=== PATIENT | female | born 1995 | race Caucasian/White ===

== ENCOUNTER 2022-02-18 08:55 | Outpatient (CLI) | payer BC ==
[2022-02-18 19:01] LABS: SARS-CoV-2 PCR by NAA Not Detected (NotDetected)
== END 2022-02-18 08:56 | disposition home or self-care (01) ==
LOC: CSHLAB 08:55
PROVIDERS: ATTEND Obstetrics & Gynecology
DX: Z20.822 Contact with and (suspected) exposure to COVID-19 (principal)
CPT/HCPCS: U0003; U0005

== ENCOUNTER 2022-02-23 18:00 | Inpatient (IN) | payer BC ==
[~2022-02-23 18:00] MED LIST: Bupivacaine 0.25% HCL 30 ML VIAL ONE; Bupivacaine HCl 0.5%/Epinephrine 1:200,000/PF 30 ml Vial ONE; ePHEDrine Sulfate 50 MG/10 ML VIAL ONE
[2022-02-23] MEDS ORDERED: HYDROcodone/Acetaminophen 5/325 mg Tablet PO PRN ×2 (21:40)
[2022-02-23] MEDS ORDERED: Misoprostol 200 MCG TAB PR PRN (21:40)
[2022-02-23] MEDS ORDERED: Ondansetron PF 4 MG/2 ML Vial IVP PRN (21:40)
[2022-02-23] MEDS ORDERED: Diphenoxylate HCl/Atropine Tablet PO PRN ×2 (21:40)
[2022-02-23] MEDS ORDERED: Promethazine HCl 25 MG/ML VIAL IM PRN (21:40)
[2022-02-23] MEDS ORDERED: Lorazepam 2 MG/ML VIAL SLOW IVP PRN (21:40)
[2022-02-23] MEDS ORDERED: Docusate 100 MG CAP PO PRN (21:40)
[2022-02-23] MEDS ORDERED: Zolpidem Tartrate 5 MG TAB PO PRN (21:40)
[2022-02-23] MEDS ORDERED: Acetaminophen 500 MG TAB PO PRN (21:40)
[2022-02-23] MEDS ORDERED: Calcium Gluc 4.6 MEQ/10 ML (100 MG/ML) SLOW IVP PRN (21:40)
[2022-02-23] MEDS ORDERED: NS w/ Oxytocin 30 units 500 ML IV SCH (21:40)
[2022-02-23] MEDS ORDERED: Butorphanol Tartrate 1 MG/ML VIAL SLOW IVP PRN (21:40)
[2022-02-23] MEDS ORDERED: hydrALAZINE 20 MG/ML VIAL SLOW IVP PRN (21:40)
[2022-02-23] MEDS ORDERED: Lidocaine 1% (PF) 30 ML VIAL SC PRN (21:40)
[2022-02-23] MEDS ORDERED: Ibuprofen 800 MG TAB PO PRN (21:40)
[2022-02-23] MEDS ORDERED: Penicillin G Potassium 5 MILL.UNITS in Sodium Chloride 0.9% 100 ML IVPB SCH (21:45)
[2022-02-23] MEDS ORDERED: Misoprostol 100 MCG TAB ONE (21:46)
[2022-02-23 22:11] VITALS: BMI 41.7
[2022-02-23] MEDS: Misoprostol 100 MCG TAB VAG SCH (22:45)
[2022-02-23] MEDS: Lactated Ringer's 1,000 ML IV SCH (22:45)
[2022-02-23 22:58] LABS: ALT (SGPT) 10 U/L (8-55); AST (SGOT) 14 U/L (5-34); Albumin 3.5 g/dL (3.5-5.0); Alkaline Phosphatase 158 U/L (40-110); Bilirubin, Direct 0.1 mg/dL (0.1-0.3); Bilirubin, Total 0.3 mg/dL (0.2-1.2); Protein, Total 6.3 g/dL (6.0-8.3); Uric Acid 4.5 mg/dL (2.6-6.0)
[2022-02-23 23:09] LABS: #Eosinphils 0.1 10x3/uL (0.0-0.5); #Monocytes 0.8 10x3/uL (0.0-1.1); #Neutrophils 7.7 10x3/uL (1.5-8.4); %Basophils 0.3 % (0.0-2.0); %Eosinophils 0.7 % (0.0-6.0); %Lymphocytes 18.8 % (18.0-47.0); %Monocytes 7.2 % (0.0-10.0); %Neutrophils 72.2 % (40.0-75.0); Hemoglobin 11.8 g/dL (12.0-15.5); Mean Corpuscular Hemoglobin 29.1 pg (27.0-33.0); Mean Corpuscular Volume 85.5 fl (81.6-98.3); Mean Platelet Volume 11.1 fl (7.4-10.4); Platelet Count 218 10x3/uL (150-450); Red Blood Cell (RBC) Count 4.06 10x6/uL (3.90-5.03); White Blood Cell (WBC) Count 10.6 10x3/uL (3.5-10.5)
[2022-02-23 23:14] LABS: HIV (1/2) Antibody/Antigen Non-Reactive (NonReactive); HIV 1/2 INDEX 0.07 S/CO (<1.00); Hep B Surf Ag Non-Reactive S/CO (NonReactive)
[2022-02-23 23:14] LABS: Syphilis Antibody Nonreactive (Nonreactive); Syphilis Antibody Index 0.06 S/CO (<1.00 Non-Reactive)
[2022-02-23 23:16] LABS: HBSAg Index 0.18 S/CO (0-0.99)
[2022-02-24 00:55] LABS: Creatinine, Urine 126.43 mg/dL (47-110)
[2022-02-24] MEDS: Penicillin G 2.5 MILL.units 2.5 MILL.UNITS in Premix Bag 1 BAG IVPB SCH ×4 (02:54→16:25)
[2022-02-24] MEDS: NS w/ Oxytocin 30 units 500 ML IV SCH ×2 (02:55→22:43)
[2022-02-24] MEDS: Lactated Ringer's 1,000 ML IV SCH (05:38)
[2022-02-24] MEDS ORDERED: Fentanyl 2 mcg/Bup 0.1% Cadd 100 ML ONE ×2 (08:42→16:12)
[2022-02-24] MEDS ORDERED: Acetaminophen 325 MG TAB PO PRN (09:44)
[2022-02-24] MEDS ORDERED: Naloxone HCl 0.4 mg/ml Vial IVP PRN ×2 (09:44)
[2022-02-24] MEDS ORDERED: ePHEDrine Sulfate 50 MG/10 ML VIAL SLOW IVP PRN (09:44)
[2022-02-24] MEDS ORDERED: Moisturizing Cream (Eucerin) 113 GM JAR TOP PRN (09:44)
[2022-02-24] MEDS ORDERED: Promethazine HCl 25 MG/ML VIAL IM PRN ×2 (09:44→21:48)
[2022-02-24] MEDS ORDERED: Ondansetron PF 4 MG/2 ML Vial IVP PRN ×2 (09:44→21:48)
[2022-02-24] MEDS ORDERED: Lactated Ringer's 500 ML IV PRN (09:44)
[2022-02-24] MEDS ORDERED: diphenhydrAMINE 50 MG/ML VIAL IVP PRN ×2 (09:44→21:48)
[2022-02-24] MEDS ORDERED: Communication Order-Pharmacy FS SCH ×2 (09:45→22:00)
[2022-02-24] MEDS ORDERED: Fentanyl 2 mcg/Bupivacaine 0.1% Cassette 100 ML EPIDURAL SCH (09:45)
[2022-02-24] MEDS ORDERED: Ondansetron PF 4 MG/2 ML Vial ONE ×2 (16:12→22:20)
[2022-02-24] MEDS ORDERED: ceFAZolin 2 GM/Dextrose 50 ML IVPB ONE (19:41)
[2022-02-24] MEDS ORDERED: Bicitra 30 ML UDCUP ONE (19:42)
[2022-02-24] MEDS ORDERED: Azithromycin 500 MG VIAL ONE (19:42)
[2022-02-24] MEDS ORDERED: PROPOFOL 20 ML ONE (19:47)
[2022-02-24] MEDS ORDERED: Fentanyl 100 MCG/2 ML VIAL ONE ×2 (19:47→20:57)
[2022-02-24] MEDS ORDERED: Oxytocin 10 UNITS/ML VIAL ONE (19:48)
[2022-02-24] MEDS ORDERED: Succinylcholine 200 MG/10 ml SYRINGE FS ONE (19:48)
[2022-02-24] MEDS ORDERED: PHENYLEPHRINE-NS 100 MCG/ML 10 ML SYRINGE ONE (19:48)
[2022-02-24] MEDS ORDERED: Rocuronium Bromide 10 MG/ML (10ML VIAL) ONE (19:48)
[2022-02-24] MEDS ORDERED: Carboprost 250 MCG/ML AMP ONE (20:00)
[2022-02-24] MEDS ORDERED: Glycopyrrolate 0.2 MG/ML 5 ML SYRINGE ONE (20:46)
[2022-02-24 20:59] LABS: pH (Cord, venous) 7.299 (7.250-7.350)
[2022-02-24] MEDS ORDERED: Ondansetron HCl/PF 4 MG/2 ML Vial IVP PRN (21:48)
[2022-02-24] MEDS ORDERED: Zolpidem Tartrate 5 MG TAB PO PRN (21:48)
[2022-02-24] MEDS ORDERED: diphenhydrAMINE 25 MG CAP PO PRN (21:48)
[2022-02-24] MEDS ORDERED: diphenhydrAMINE 50 MG/ML VIAL IM PRN (21:48)
[2022-02-24] MEDS ORDERED: Naloxone HCl 0.4 mg/ml Vial IV PRN (21:48)
[2022-02-24] MEDS: fentaNYL Citrate/PF 1,000 MCG in Sodium Chloride 0.9% 30 ML IV PRN (22:14)
[2022-02-24] MEDS ORDERED: Dexamethasone 4 mg/ml Vial ONE (22:20)
[2022-02-24] MEDS: Ketorolac Tromethamine 30 MG/ML VIAL IVP SCH (22:42)
[2022-02-25 00:05] LABS: Hemoglobin 10.7 g/dL (12.0-15.5)
[2022-02-25] MEDS ORDERED: hydrALAZINE 20 MG/ML VIAL SLOW IVP PRN (02:46)
[2022-02-25] MEDS ORDERED: Acetaminophen 325 MG TAB PO PRN (02:46)
[2022-02-25] MEDS ORDERED: Ondansetron PF 4 MG/2 ML Vial IVP PRN (02:46)
[2022-02-25] MEDS ORDERED: diphenhydrAMINE 25 MG CAP PO PRN (02:46)
[2022-02-25] MEDS ORDERED: Lanolin Ointment 7 GM TUBE TOP PRN (02:46)
[2022-02-25] MEDS ORDERED: Bisacodyl 10 MG SUPP PR PRN (02:46)
[2022-02-25] MEDS ORDERED: Promethazine HCl 25 MG/ML VIAL IM PRN (02:46)
[2022-02-25] MEDS ORDERED: NS w/ Oxytocin 30 units 500 ML IV SCH (02:46)
[2022-02-25] MEDS ORDERED: Boostrix 0.5 ML (Tdap) VIAL IM ONE (02:46)
[2022-02-25] MEDS: Docusate 100 MG CAP PO SCH ×2 (02:57→12:25)
[2022-02-25] MEDS: Ferrous Sulfate 325 MG TAB PO SCH ×2 (02:57→07:56)
[2022-02-25] MEDS: Ketorolac Tromethamine 30 MG/ML VIAL IVP SCH ×3 (05:08→18:52)
[2022-02-25 08:23] LABS: Hemoglobin 9.1 g/dL (12.0-15.5); Mean Corpuscular HGB CONC 33.3 g/dL (32.0-36.0); Mean Corpuscular Hemoglobin 28.5 pg (27.0-33.0); Mean Corpuscular Volume 85.6 fl (81.6-98.3); Platelet Count 233 10x3/uL (150-450); RBC Distribution Width 16.1 % (11.5-14.5); Red Blood Cell (RBC) Count 3.19 10x6/uL (3.90-5.03); White Blood Cell (WBC) Count 17.1 10x3/uL (3.5-10.5)
[2022-02-25] MEDS: fentaNYL Citrate/PF 1,000 MCG in Sodium Chloride 0.9% 30 ML IV PRN ×2 (10:52→21:17)
[2022-02-25] MEDS: Prenatal Vitamin 1 TAB PO SCH (12:25)
[2022-02-26] MEDS: Docusate 100 MG CAP PO SCH ×3 (03:02→21:54)
[2022-02-26] MEDS: Ketorolac Tromethamine 30 MG/ML VIAL IVP SCH ×5 (03:02→23:36)
[2022-02-26] MEDS: Ferrous Sulfate 325 MG TAB PO SCH ×3 (03:03→21:54)
[2022-02-26] MEDS: HYDROcodone/Acetaminophen 5/325 mg Tablet PO PRN ×3 (08:33→17:35)
[2022-02-26] MEDS: Prenatal Vitamin 1 TAB PO SCH (08:33)
[2022-02-26] MEDS: Simethicone Chewable 80 MG TAB PO PRN ×2 (08:33→21:54)
[2022-02-26] MEDS: Misoprostol 100 MCG TAB VAG SCH ×2 (20:55→20:56)
[2022-02-26] MEDS: Penicillin G 2.5 MILL.units 2.5 MILL.UNITS in Premix Bag 1 BAG IVPB SCH ×2 (20:55→20:56)
[2022-02-26] MEDS: Lactated Ringer's 1,000 ML IV SCH (20:56)
[2022-02-27] MEDS: Simethicone Chewable 80 MG TAB PO PRN (04:03)
[2022-02-27] MEDS: HYDROcodone/Acetaminophen 5/325 mg Tablet PO PRN ×3 (04:03→12:59)
[2022-02-27] MEDS: Ibuprofen 800 MG TAB PO SCH ×3 (05:46→21:39)
[2022-02-27] MEDS: Ferrous Sulfate 325 MG TAB PO SCH (08:39)
[2022-02-27] MEDS: Prenatal Vitamin 1 TAB PO SCH (08:39)
[2022-02-27] MEDS: Docusate 100 MG CAP PO SCH ×2 (08:39→21:39)
[2022-02-28] MEDS: Ferrous Sulfate 325 MG TAB PO SCH ×2 (06:12→09:19)
[2022-02-28] MEDS: Ibuprofen 800 MG TAB PO SCH ×2 (06:13→14:42)
[2022-02-28] MEDS: HYDROcodone/Acetaminophen 5/325 mg Tablet PO PRN ×2 (09:19→14:42)
[2022-02-28] MEDS: Prenatal Vitamin 1 TAB PO SCH (09:19)
[2022-02-28] MEDS: Docusate 100 MG CAP PO SCH (09:19)
[2022-02-28 15:27] VITALS: BP 135/84; TEMP 98.4
== END 2022-02-28 16:15 | disposition home or self-care (01) | DRG 788 ==
LOC: CSHLD 21:06 → CSHPP 02-25 00:50
PROVIDERS: ADMIT Obstetrics & Gynecology; ATTEND Obstetrics & Gynecology
PROC: 10907ZC Drainage of Amniotic Fluid, Therapeutic from Products of Conception, Via Natural or Artificial Opening (ICD-10-PCS; 2022-02-23)
PROC: 3E0P7VZ Introduction of Hormone into Female Reproductive, Via Natural or Artificial Opening (ICD-10-PCS; 2022-02-23)
PROC: 3E033VJ Introduction of Other Hormone into Peripheral Vein, Percutaneous Approach (ICD-10-PCS; 2022-02-23)
PROC: 10D00Z1 Extraction of Products of Conception, Low, Open Approach (ICD-10-PCS; principal; 2022-02-24)
DX: O13.4 Gestational [pregnancy-induced] hypertension without significant proteinuria, complicating childbirth (principal); O99.824 Streptococcus B carrier state complicating childbirth; D64.9 Anemia, unspecified; O99.02 Anemia complicating childbirth; K21.9 Gastro-esophageal reflux disease without esophagitis; O99.62 Diseases of the digestive system complicating childbirth; F32.A Depression, unspecified; O99.344 Other mental disorders complicating childbirth; O32.8XX0 Maternal care for other malpresentation of fetus, not applicable or unspecified; O71.7 Obstetric hematoma of pelvis; O62.1 Secondary uterine inertia; O76 Abnormality in fetal heart rate and rhythm complicating labor and delivery; Z90.89 Acquired absence of other organs; Z90.49 Acquired absence of other specified parts of digestive tract; Z79.899 Other long term (current) drug therapy; Z79.82 Long term (current) use of aspirin; Z3A.39 39 weeks gestation of pregnancy; Z37.0 Single live birth
CPT/HCPCS: 36415; 51702; 62272; 80076; 82570; 82805; 83615; 84156; 84550; 85014; 85018; 85025; 85027; 86780; 86850; 86900; 86901; 87340; 87389; J0690; J1885; J2405; J2540; J2590; J2704; J3010; J3490; J7120; S0020